=== PATIENT | female | born 1985 | race Caucasian/White ===

== ENCOUNTER 2017-03-29 02:15 | Emergency (ER) | payer OTHER ==
[~2017-03-29] VITALS: Ht 172.7 cm; Wt 59.0 kg
[2017-03-29 02:25] VITALS: Ht 172.7 cm; Wt 59.0 kg
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
[2017-03-29 03:57] VITALS: BP 121/66; PULSE 89; RESP 20
[2017-03-29] MEDS ORDERED: CARI350T PO (04:58)
[2017-03-29] MEDS ORDERED: ALPR1TAB7 PO (04:58)
[2017-03-29] MEDS ORDERED: FLUO40CA PO (04:58)
== END 2017-03-29 03:59 | disposition home or self-care (01) ==
LOC: EDBD 02:15 → E/R 02:15
DX: T40.1X1A Poisoning by heroin, accidental (unintentional), initial encounter (principal); F17.210 Nicotine dependence, cigarettes, uncomplicated
CPT/HCPCS: 99283